=== PATIENT | male | born 1945 | race African-American/Black ===

== ENCOUNTER 2016-08-04 05:59 | Emergency (ER) | payer BC, SELFPAY ==
[2016-08-04] MEDS ORDERED: Ibuprofen 600 MG TAB ONE (08:32)
== END 2016-08-04 08:40 | disposition home or self-care (01) ==
LOC: MADERS 05:59
DX: S00.03XA Contusion of scalp, initial encounter (principal); E11.9 Type 2 diabetes mellitus without complications; E03.9 Hypothyroidism, unspecified; K21.9 Gastro-esophageal reflux disease without esophagitis; I10 Essential (primary) hypertension; Z79.84 Long term (current) use of oral hypoglycemic drugs; Z79.899 Other long term (current) drug therapy; V89.2XXA Person injured in unspecified motor-vehicle accident, traffic, initial encounter
CPT/HCPCS: 36416; 99284; G0390